=== PATIENT | female | born 1955 | race Caucasian/White ===

== ENCOUNTER 2018-05-09 09:28 | Day surgery (SDC) | payer OTHER ==
[~2018-05-09] VITALS: Ht 165.1 cm; Wt 65.3 kg
[~2018-05-09 09:28] MED LIST: CEFAZOLIN 1 GM IVPB PREMIX 50 ML IV ONE
[2018-05-09] MEDS ORDERED: fentaNYL CITRATE/PF 100 MCG/2 ML AMP IVP PRN ×2 (12:15)
[2018-05-09] MEDS ORDERED: D5/0.45 NS 1,000 ML IV SCH (13:33)
[2018-05-09] MEDS ORDERED: HYDROmorphone 1 MG INJ. 1 MG/ML AMPUL IVP PRN (13:45)
[2018-05-09] MEDS ORDERED: fentaNYL CITRATE/PF 100 MCG/2 ML AMP ONE (14:26)
[2018-05-09] MEDS ORDERED: ONDANSETRON HCL 4 MG/2 ML VIAL ONE (14:26)
[2018-05-09] MEDS ORDERED: ONDANSETRON HCL 4 MG/2 ML VIAL IVP ONE (14:30)
[2018-05-09 16:07] VITALS: BP_SYST 130
== END 2018-05-09 16:05 | disposition home or self-care (01) ==
LOC: SDS 09:28 → SMU 09:30 → SDS 16:05
PROVIDERS: ATTEND Colon & Rectal Surgery
DX: K66.0 Peritoneal adhesions (postprocedural) (postinfection) (principal); F32.9 Major depressive disorder, single episode, unspecified; K21.9 Gastro-esophageal reflux disease without esophagitis; N60.19 Diffuse cystic mastopathy of unspecified breast; I10 Essential (primary) hypertension; F41.9 Anxiety disorder, unspecified; Z85.820 Personal history of malignant melanoma of skin; Z85.828 Personal history of other malignant neoplasm of skin; E16.2 Hypoglycemia, unspecified; M54.16 Radiculopathy, lumbar region; C43.9 Malignant melanoma of skin, unspecified; G43.109 Migraine with aura, not intractable, without status migrainosus; J45.20 Mild intermittent asthma, uncomplicated; Z79.899 Other long term (current) drug therapy; Z80.8 Family history of malignant neoplasm of other organs or systems; Z88.2 Allergy status to sulfonamides; Z88.8 Allergy status to other drugs, medicaments and biological substances; Z90.49 Acquired absence of other specified parts of digestive tract; Z98.890 Other specified postprocedural states
CPT/HCPCS: 49329; J0690; J2405; J3010; J7120; C1727